=== PATIENT | female | born 1955 | race Caucasian/White ===

== ENCOUNTER 2016-12-03 07:03 | Inpatient (IN) | payer OTHER ==
[~2016-12-03] VITALS: Ht 152.4 cm; Wt 75.5 kg
[~2016-12-03 07:03] MED LIST: ALPR.5 PO; CYAN1000P IM; CYTO25TA PO; ESTR42.5V VAGINAL; GABA100C4 PO; LEVO.05 PO; PHEN-510 PO; PROT40TA PO
[2016-12-03] MEDS ORDERED: POVIDONE IODINE 5% (ANTISEPSIS KIT) 4 APPLICATIONS EACH NARE PRN (07:30)
[2016-12-03] MEDS ORDERED: CHLORHEXIDINE GLUCONATE 2 % 1 PACK (2 CLOTHS) TOPICAL PRN (07:30)
[2016-12-03] MEDS ORDERED: LACTATED RINGER'S 1000 ML IV PRN (07:30)
[2016-12-03] MEDS ORDERED: ONDANSETRON HCL 4 MG/2 ML VIAL IV PUSH SCH (07:30)
[2016-12-03] MEDS ORDERED: metroNIDAZOLE 500 MG INJ 100 ML IV SCH (07:30)
[2016-12-03] MEDS ORDERED: ceFAZolin 2 GM PREMIX 50 ML IV SCH (07:30)
[2016-12-03] MEDS ORDERED: INSULIN HUMAN REGULAR 1,000 UNITS/10 ML VIAL SQ PRN (07:30)
[2016-12-03] MEDS ORDERED: APREPITANT 40 MG CAP PO SCH (07:30)
[2016-12-03] MEDS ORDERED: METOPROLOL TARTRATE 25 MG TAB PO PRN (07:30)
[2016-12-03] MEDS ORDERED: ACETAMINOPHEN 1000 MG/100 ML VIAL IV SCH (07:30)
[2016-12-03] MEDS ORDERED: SODIUM CHLORID 0.9% 500 ML IV PRN (07:30)
[2016-12-03 07:50] VITALS: BP 159/82; PULSE 73; RESP 20; TEMP 97.9; O2SAT 97
[2016-12-03] MEDS ORDERED: MIDAZOLAM HCL 2 MG/2 ML VIAL ONE ×2 (08:44→12:02)
[2016-12-03] MEDS ORDERED: FAMOTIDINE 20 MG/2 ML VIAL ONE (08:44)
[2016-12-03] MEDS ORDERED: DEXAMETHASONE SOD PHOS 4 MG/ML VIAL ONE (08:49)
[2016-12-03] MEDS ORDERED: BUPIVACAINE/EPINEPHRINE 0.25% 50 ML VIAL INFIL ONE (09:57)
[2016-12-03] MEDS ORDERED: NALOXONE HCL 0.4 MG/ML AMP IV PRN (11:30)
[2016-12-03] MEDS ORDERED: MAGNESIUM HYDROXIDE SUSP 30 ML CUP PO PRN (11:30)
[2016-12-03] MEDS ORDERED: Post-op Orders (for Pharmacy) MISC XX ONE (11:30)
[2016-12-03] MEDS ORDERED: SODIUM CHLORIDE 0.9% FLUSH 10 ML FLUSH IV FLUSH PRN (11:30)
[2016-12-03] MEDS ORDERED: ONDANSETRON HCL 4 MG/2 ML VIAL IV PUSH ONE (12:00)
[2016-12-03] MEDS ORDERED: PROPOFOL 200 MG/20 ML AMP IV ONE (12:00)
[2016-12-03] MEDS ORDERED: LACTATED RINGER'S 1000 ML INJ 1,000 ML IV ONE (12:00)
[2016-12-03] MEDS ORDERED: NEOSTIGMINE 3 MG/3 ML SYR IV ONE (12:00)
[2016-12-03] MEDS ORDERED: *morphine SULFATE 8 MG/ML PERIprocedure ONLY ONE ×2 (12:00→12:10)
[2016-12-03] MEDS ORDERED: DO NOT ADM ANY ANTICOAGULANT DRUGS PRN (12:00)
[2016-12-03] MEDS ORDERED: fentaNYL CITRATE 250 MCG/5 ML AMP ONE (12:02)
[2016-12-03] MEDS ORDERED: MORPHINE SULFATE 4 MG/ML INJ ONE (12:02)
[2016-12-03] MEDS: SODIUM CHLOR 0.9% 1000 ML INJ 1,000 ML IV SCH ×2 (13:24→20:51)
--- NOTE | 2016-12-03 13:24 | MP ---
cc: LUCINDA SIERRA DATE OF SURGERY 12/03/16 DATE OF 1955 PREOPERATIVE DIAGNOSIS Ventral incisional hernia. POSTOPERATIVE DIAGNOSIS Ventral incisional hernia. PROCEDURE Laparoscopic repair of ventral hernia with a [address] Mesh with Echo PS Positioning System. SURGEON Lucinda Sierra MD ANESTHESIA General endotracheal anesthesia. FINDINGS Adhesions of omentum, abdominal wall with interloop small bowel adhesions. 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 Adhesions were taken down between the stomach and the left lobe of the liver. Gastric pouch was identified. The Julienne limb was inspected. There was adhesions to the transverse colon which was taken down sharply. There was no evidence of hernia at the enteroenterostomy or Donnelly hernia. No evidence of bowel obstruction. SPECIMENS None. COMPLICATIONS None. OPERATION The patient was brought to the operating room, placed on the operating table in a supine position. Bilateral sequential inflation device placed on lower extremities. General anesthesia instituted. Hutchinson catheter placed. Antibiotics initiated. The abdomen was prepped and draped sterilely. A point in the left upper quadrant anesthetized with 0.25% Marcaine with epinephrine. A skin incision was made, 5 mm Optiview port placed under direct vision and pneumoperitoneum created. Under direct vision a 5-mm left lower quadrant port was placed. Adhesions of small bowel and omentum to the abdominal wall was taken down sharply. A 5 mm port was placed in the left lower quadrant and a 12 mm port was placed in the right upper quadrant. Attention was then focused on inspection of the abdominal cavity. Findings were above. Interloop adhesions were sharply . The hernia defect was identified. A 15 [address] Mesh was opened and deployed into the abdominal cavity to cover the defect, leaving at least a 4 cm overlap circumferentially. The mesh was then secured with secure strap, placed circumferentially approximately 2 cm apart with the outer perimeter of the mesh and CapSure permanent fixation tack was used internally placed approximately 2 cm from the edge of the mesh. The abdominal cavity was inspected. The mesh laid well without wrinkles. There was no evidence of bleeding. The CO2 was removed. All ports removed. All skin incisions were closed with 4-0 Monocryl. Abdominal wall cleaned and sterile dressing placed. The patient was awakened and taken to recovery room. MD SITA Yadav /11:37 AM /1:06 PM COMFORT
[2016-12-03] MEDS: MORPHINE SULFATE 30 MG/30 ML PCA IV SCH (14:06)
[2016-12-03 15:30] VITALS: BP 129/69; PULSE 84; RESP 17; TEMP 97.6; O2SAT 95
[2016-12-03] MEDS ORDERED: GABAPENTIN 100 MG CAP PO PRN (15:30)
[2016-12-03] MEDS: metroNIDAZOLE 500 MG INJ 100 ML IV SCH ×2 (16:12→23:34)
[2016-12-03] MEDS: ONDANSETRON HCL 4 MG/2 ML VIAL IV PRN (18:34)
[2016-12-03 20:00] VITALS: BP 135/73; PULSE 90; RESP 20; TEMP 97.2; O2SAT 98
[2016-12-03 20:10] VITALS: O2SAT 97
[2016-12-03] MEDS: PCA - TOTAL MG MORPHINE DELIVERED PER SHIFT SCH (20:50)
[2016-12-03] MEDS: SODIUM CHLORIDE 0.9% FLUSH 10 ML FLUSH IV FLUSH SCH (20:50)
[2016-12-03] MEDS: DOCUSATE SODIUM 100 MG CAP PO SCH (20:50)
[2016-12-04] VITALS (8 sets, daily range): BP systolic 108–136; BP diastolic 62–76; PULSE 62–82; RESP 17–20; TEMP 96.7–98.4; O2SAT 93–97
[2016-12-04] MEDS: ONDANSETRON HCL 4 MG/2 ML VIAL IV PRN ×2 (03:19→20:10)
[2016-12-04] MEDS: SODIUM CHLOR 0.9% 1000 ML INJ 1,000 ML IV SCH ×2 (05:31→20:11)
[2016-12-04] MEDS: LEVOTHYROXINE SODIUM 50 MCG TAB PO SCH (05:31)
[2016-12-04] MEDS: LIOTHYRONINE SODIUM 5 MCG TAB PO SCH (05:31)
[2016-12-04] MEDS: PCA - TOTAL MG MORPHINE DELIVERED PER SHIFT SCH (05:31)
[2016-12-04] MEDS: SODIUM CHLORIDE 0.9% FLUSH 10 ML FLUSH IV FLUSH SCH ×2 (09:00→20:11)
[2016-12-04] MEDS: MORPHINE SULFATE 30 MG/30 ML PCA IV SCH (09:14)
[2016-12-04] MEDS: metroNIDAZOLE 500 MG INJ 100 ML IV SCH (09:17)
[2016-12-04] MEDS: DOCUSATE SODIUM 100 MG CAP PO SCH ×2 (09:17→20:10)
[2016-12-04] MEDS: ENOXAPARIN SODIUM 40 MG/0.4 ML SYRINGE SQ SCH (09:20)
--- NOTE | 2016-12-04 12:14 | HHI.PR ---
Subjective Subjective Notes 61yo female POD#1 Mesh ventral hernia repair with prior history RNY. Laying in bed complaining of incisional pain. Tolerating PO fluids Objective Vitals/I&O Vital Signs Date Time Temp Pulse Resp B/P Pulse Ox O2 Delivery O2 Flow Rate FiO2 12/04/16 09:14 18 12/04/16 08:50 93 21 12/04/16 08:00 98.4 68 135/76 12/03/16 20:10 Nasal Cannula 2.00 Cardiovascular: Regular Lungs: Clear Abdomen: Post-op tenderness Extremities: Perfused Wound Wound : Wound Location: Abdomen Appearance: Clean & Dry A/P Assessment and Plan Ambulate halls at least QID Can use acetaminophen for headache Continue with liquid diet The exam, history, and the medical decision-making described in the above note were completed with the assistance of the mid-level provider. I reviewed and agree with the findings presented. I attest that I had a [id number] encounter with the patient on the same day, and personally performed and documented my assessment and findings in the medical record. Discharge Planning D/C home possibly tomorrow Ryan Paz Dec 04, 2016 12:14 King Bustos MD Dec 23, 2016 11:16
[2016-12-04] MEDS: oxyCODONE/ACETAMINOPHEN 5 MG/325 MG TAB PO PRN ×2 (14:46→20:11)
[2016-12-05] VITALS: BP 121/62; PULSE 76; RESP 17; TEMP 97.4; O2SAT 98
[2016-12-05] MEDS: ACETAMINOPHEN 325 MG TAB PO PRN ×2 (00:59→06:37)
[2016-12-05] MEDS: oxyCODONE/ACETAMINOPHEN 5 MG/325 MG TAB PO PRN ×3 (04:07→14:30)
[2016-12-05] MEDS: SODIUM CHLOR 0.9% 1000 ML INJ 1,000 ML IV SCH (05:26)
[2016-12-05] MEDS: LEVOTHYROXINE SODIUM 50 MCG TAB PO SCH (05:27)
[2016-12-05] MEDS: LIOTHYRONINE SODIUM 5 MCG TAB PO SCH (05:27)
[2016-12-05 08:00] VITALS: BP 159/77; PULSE 76; RESP 20; TEMP 97.8; O2SAT 95
[2016-12-05] MEDS: SODIUM CHLORIDE 0.9% FLUSH 10 ML FLUSH IV FLUSH SCH (09:00)
[2016-12-05] MEDS: DOCUSATE SODIUM 100 MG CAP PO SCH (09:22)
[2016-12-05] MEDS: ENOXAPARIN SODIUM 40 MG/0.4 ML SYRINGE SQ SCH (10:33)
[2016-12-05 12:00] VITALS: BP 167/72; PULSE 72; RESP 18; TEMP 97.3; O2SAT 95
--- NOTE | 2016-12-05 12:59 | HHI.PR ---
Subjective Subjective Notes POD#2 Mesh ventral hernia repair with prior history RNY. Walking the halls. Feels better. Tolerating PO fluids and passing flatus Objective Vitals/I&O Vital Signs Date Time Temp Pulse Resp B/P Pulse Ox O2 Delivery O2 Flow Rate FiO2 12/05/16 11:35 18 12/05/16 08:00 97.8 76 159/77 95 12/04/16 08:50 21 12/03/16 20:10 Nasal Cannula 2.00 Cardiovascular: Regular Lungs: Clear Abdomen: Post-op tenderness Extremities: Perfused Wound Wound : Wound Location: Abdomen Appearance: Clean & Dry A/P Assessment and Plan Continue with frequent ambulation Advance diet as tolerated The exam, history, and the medical decision-making described in the above note were completed with the assistance of the mid-level provider. I reviewed and agree with the findings presented. I attest that I had a [id number] encounter with the patient on the same day, and personally performed and documented my assessment and findings in the medical record. Discharge Planning D/C home today Ryan Paz Dec 05, 2016 12:59 King Bustos MD Dec 23, 2016 11:17
== END 2016-12-05 14:55 | disposition home or self-care (01) | DRG 337 ==
LOC: HSDC 07:03 → HSDI 11:33 → N07A 14:39
PROVIDERS: ADMIT Surgery; ATTEND Surgery
PROC: 0WUF4JZ Supplement Abdominal Wall with Synthetic Substitute, Percutaneous Endoscopic Approach (ICD-10-PCS; 2016-12-03)
PROC: 0DNS4ZZ (ICD-10-PCS; principal; 2016-12-03 09:10)
DX: K43.2 Incisional hernia without obstruction or gangrene (principal); E03.9 Hypothyroidism, unspecified; F41.9 Anxiety disorder, unspecified; K66.0 Peritoneal adhesions (postprocedural) (postinfection); Z98.84 Bariatric surgery status
CPT/HCPCS: 94150; C1781; J0131; J0690; J1100; J1650; J2250; J2270; J2405; J2710; J3010; J7030; J7120; J8501